=== PATIENT | female | born 2000 | race Caucasian/White ===

== ENCOUNTER 2020-04-20 21:03 | Inpatient (IN) | payer BC ==
[~2020-04-20] VITALS: Ht 172.7 cm; Wt 72.6 kg
[2020-04-20] MEDS ORDERED: SODIUM CHLORIDE 0.9% 1,000 ML IV ONE ×2 (21:30→22:00)
[2020-04-20] MEDS: FENTANYL CITRATE/PF 50MCG/ML 2ML VIAL IV ONE ×2 (21:38→21:41)
[2020-04-20] MEDS ORDERED: ONDANSETRON HCL 4MG/2ML INJ IV ONE ×2 (21:45)
[2020-04-20] MEDS ORDERED: PROPOFOL 200MG/20ML VIAL IV PRN (21:45)
[2020-04-21] MEDS ORDERED: HYDROMORPHONE HCL/PF 2MG/ML CPJ IV ONE ×2 (00:15→00:45)
[2020-04-21] MEDS ORDERED: KETAMINE HCL 50 MG/ML 10ML IV ONE (00:45)
[2020-04-21] MEDS ORDERED: ONDANSETRON HCL 4MG/2ML INJ IV ONE (01:45)
[2020-04-21] MEDS: FENTANYL CITRATE/PF 50MCG/ML 2ML VIAL IV PRN ×2 (01:52→07:28)
[2020-04-21] MEDS: MORPHINE SULFATE 2 MG/ML CPJ (NOT FOR IM USE) IV PRN ×4 (08:44→21:14)
[2020-04-21] MEDS ORDERED: ONDANSETRON HCL 4MG/2ML INJ IV PRN (12:45)
[2020-04-21 13:24] LABS: BASOPHILS % 0.5 % (0.0-2.0); EOSINOPHILS % 2.8 % (0.0-5.0); HEMATOCRIT. 39.5 % (36.0-48.0); HEMOGLOBIN. 13.4 g/dL (12.0-16.0); LYMPHOCYTES % 20.9 % (20.0-50.0); MEAN CORPUSCULAR HEMOGLOBIN 28.5 pg (28.0-32.0); MEAN CORPUSCULAR VOLUME 83.9 fL (81.0-99.0); MEAN PLATELET VOLUME 7.3 fl (7.4-10.4); MONOCYTES % 11.8 % (2.0-8.0); PLATELET 280 x1000/uL (130-400); RED BLOOD CELL COUNT 4.71 mill/uL (4.2-5.4); RED CELL DISTRIBUTION WIDTH 12.9 % (11.6-14.6)
[2020-04-21 14:05] LABS: CHLORIDE 105 mEq/L (98-107)
[2020-04-21 16:40] VITALS: BP 121/83
[2020-04-21 20:00] VITALS: BP 125/74
[2020-04-22] VITALS: BP 127/88
[2020-04-22] MEDS: MORPHINE SULFATE 2 MG/ML CPJ (NOT FOR IM USE) IV PRN ×3 (01:25→20:05)
[2020-04-22 04:00] VITALS: BP 122/77
[2020-04-22] MEDS ORDERED: VANCOMYCIN HCL 1 GM/VIAL ONE ×2 (07:00→10:19)
[2020-04-22] MEDS ORDERED: BUPIVACAINE HCL/PF 0.25% (2.5MG/ML) 10ML ONE (07:00)
[2020-04-22] MEDS ORDERED: BACITRACIN 50,000 UNITS/VIAL ONE (07:00)
[2020-04-22] MEDS ORDERED: PROPOFOL 200MG/20ML VIAL IV ONE (07:17)
[2020-04-22] MEDS ORDERED: FENTANYL CITRATE/PF 50MCG/ML 2ML VIAL ONE (07:18)
[2020-04-22] MEDS ORDERED: MIDAZOLAM HCL 2 MG/2 ML VIAL ONE (07:18)
[2020-04-22] MEDS ORDERED: ROCURONIUM BROMIDE 10MG/ML VIAL 5ML IV ONE (07:20)
[2020-04-22] MEDS ORDERED: LIDOCAINE HCL/EPINEPHRINE 1%-EPI 1:100,000 20 ML VIAL ONE (07:34)
[2020-04-22] MEDS ORDERED: CEFAZOLIN SODIUM 1000MG/VIAL ONE (07:40)
[2020-04-22] MEDS ORDERED: ROPIVACAINE HCL 10MG/ML 20 ML VIAL EPI ONE (09:28)
[2020-04-22] MEDS ORDERED: MEPERIDINE HCL/PF 25MG/ML CPJ IV SCH (11:45)
[2020-04-22] MEDS: HYDROMORPHONE HCL/PF 2MG/ML CPJ IV PRN ×6 (11:58→14:44)
[2020-04-22] MEDS ORDERED: ONDANSETRON HCL 4MG/2ML INJ IV PRN (12:00)
[2020-04-22] MEDS ORDERED: MEPERIDINE HCL/PF 25MG/ML CPJ IV PRN (12:00)
[2020-04-22 17:41] LABS: HEMATOCRIT. 35.1 % (36.0-48.0); HEMOGLOBIN. 12.2 g/dL (12.0-16.0); MEAN CORPUSCULAR HEMOGLOBIN 28.9 pg (28.0-32.0); MEAN CORPUSCULAR VOLUME 83.1 fL (81.0-99.0); MEAN PLATELET VOLUME 7.2 fl (7.4-10.4); PLATELET 242 x1000/uL (130-400); RED BLOOD CELL COUNT 4.23 mill/uL (4.2-5.4); RED CELL DISTRIBUTION WIDTH 12.6 % (11.6-14.6)
[2020-04-22 17:50] LABS: CHLORIDE 103 mEq/L (98-107)
[2020-04-22 18:00] VITALS: BP 137/76
[2020-04-22 18:40] LABS: PLATELET ESTIMATE NORMAL
[2020-04-22 18:53] LABS: *BARBITURATES SCREEN URINE NEGATIVE (NEGATIVE); *COCAINE SCREEN URINE NEGATIVE (NEGATIVE)
[2020-04-22 18:54] LABS: *AMPHETAMINES SCREEN URINE NEGATIVE (NEGATIVE)
[2020-04-22 18:59] LABS: METHADONE URINE SCREEN NEGATIVE (NEGATIVE)
[2020-04-22 19:00] LABS: CANNABINOID URINE SCREEN NEGATIVE (NEGATIVE)
[2020-04-22 19:03] LABS: PHENCYCLIDINE URINE SCREEN NEGATIVE (NEGATIVE)
[2020-04-22 19:05] LABS: *BENZODIAZEPINES SCREEN URINE PRESUMTIVE POSITIVE (NEGATIVE); OPIATES URINE SCREEN PRESUMTIVE POSITIVE (NEGATIVE)
[2020-04-22 20:00] VITALS: BP 126/67
[2020-04-23] VITALS: BP 126/63
[2020-04-23] MEDS: HYDROMORPHONE HCL/PF 2MG/ML CPJ IV PRN (00:16)
[2020-04-23] MEDS: CEFAZOLIN 2,000 MG in DEXT 5% WATER 100 ML IV SCH ×4 (00:16→21:56)
[2020-04-23 04:00] VITALS: BP 127/70
[2020-04-23] MEDS: MORPHINE SULFATE 2 MG/ML CPJ (NOT FOR IM USE) IV PRN ×3 (04:49→13:47)
[2020-04-23] MEDS ORDERED: HYDROMORPHONE HCL/PF 2MG/ML CPJ IV PRN (08:30)
[2020-04-23] MEDS ORDERED: KETOROLAC 30MG/ML VIAL IV PRN (08:30)
[2020-04-23] MEDS: METOPROLOL TARTRATE 25MG TABLET PO SCH ×2 (09:02→21:57)
[2020-04-23 16:00] VITALS: BP 132/74
[2020-04-23] MEDS: HYDROCODONE/ACETAMINOPHEN 5/325MG TABLET PO PRN ×2 (18:17→22:35)
[2020-04-23 20:00] VITALS: BP 115/74
[2020-04-24] VITALS: BP 108/72
[2020-04-24 04:00] VITALS: BP 119/73
[2020-04-24] MEDS: HYDROCODONE/ACETAMINOPHEN 5/325MG TABLET PO PRN ×2 (06:05→11:16)
[2020-04-24] MEDS: CEFAZOLIN 2,000 MG in DEXT 5% WATER 100 ML IV SCH ×2 (06:05→13:44)
[2020-04-24 08:00] VITALS: BP 112/65
[2020-04-24] MEDS: METOPROLOL TARTRATE 25MG TABLET PO SCH (09:04)
[2020-04-24 12:00] VITALS: BP 114/68
[2020-04-24] MEDS ORDERED: HYDR-4001 PO (12:33)
== END 2020-04-24 17:10 | disposition home or self-care (01) | DRG 315 ==
LOC: ER 21:03 → MICUSO 04-21 06:20 → 6EST 04-21 16:33 → 5WST 04-22 17:54
PROVIDERS: ADMIT Internal Medicine; ATTEND Internal Medicine
PROC: 0PSGXZZ Reposition Left Humeral Shaft, External Approach (ICD-10-PCS; 2020-04-20)
PROC: 0PSG06Z Reposition Left Humeral Shaft with Intramedullary Internal Fixation Device, Open Approach (ICD-10-PCS; principal; 2020-04-23)
DX: S42.402A Unspecified fracture of lower end of left humerus, initial encounter for closed fracture (principal); F64.9 Gender identity disorder, unspecified; Z20.822 Contact with and (suspected) exposure to COVID-19; Y92.39 Other specified sports and athletic area as the place of occurrence of the external cause; V00.131A Fall from skateboard, initial encounter; Y93.51 Activity, roller skating (inline) and skateboarding; Y99.8 Other external cause status
CPT/HCPCS: 36415; 73070; 73080; 73200; 76000; 80048; 80053; 80305; 84145; 85025; 87426; 93005; 96374; 97162; 97535; 99285; J0690; J1170; J2175; J2250; J2270; J2405; J2704; J2795; J3010; J3370; J3490; J7030; J7060; L3670